=== PATIENT | male | born 1960 | race Caucasian/White ===

== ENCOUNTER → 2017-03-04 08:36 | Outpatient (CLI) | payer OTHER, SELFPAY ==
--- NOTE | 2017-03-04 08:38 | RAD_ITS ---
STUDY: X-RAY - CERVICAL SPINE REASON FOR EXAM: Male, 56 years old. Neck and bilateral shoulder pain with finger numbness. TECHNIQUE: 5 view(s) of the cervical spine were obtained. COMPARISON: None FINDINGS: Normal anterior atlantoaxial articulation. Normal odontoid process. Normal cervical lordosis. Normal vertebral bodies and endplates. Normal disc space heights. Normal visualized intervertebral neuroforamina. There is minimal uncovertebral and facet sclerosis. The soft tissue structures are unremarkable. RAD/Cerv Spine 4 or 5 Views IMPRESSION: Minimal spondylosis. No acute pathology. Electronically Signed: Margarito Johnson MD at 11:41 EST , Service support ,
--- NOTE | 2017-03-04 08:38 | RAD_ITS ---
STUDY: X-RAY - LEFT SHOULDER REASON FOR EXAM: Neck and bilateral shoulder pain. TECHNIQUE: 3 view(s) of the shoulder. COMPARISON: None. FINDINGS: Normal glenohumeral articulation. There is mild acromioclavicular arthrosis without marginal osteophytes. Normal acromion. Normal humeral head and visualized proximal humerus. The soft tissue structures are unremarkable. Normal visualized pulmonary apex. RAD/Shoulder min 2 Views IMPRESSION: Mild acromioclavicular arthrosis. Electronically Signed: Marcelo Dixon MD at 11:48 EST Tel , Service support ,
--- NOTE | 2017-03-04 08:40 | RAD_ITS ---
STUDY: X-RAY - RIGHT SHOULDER REASON FOR EXAM: Negative bilateral shoulder pain. TECHNIQUE: 3 view(s) of the shoulder. COMPARISON: None. FINDINGS: Normal glenohumeral articulation. Normal acromioclavicular joint. Normal acromion. Normal humeral head and visualized proximal humerus. The soft tissue structures are unremarkable. Normal visualized pulmonary apex. RAD/Shoulder min 2 Views IMPRESSION: Unremarkable x-ray examination of the right shoulder. Electronically Signed: Marcelo Dixon MD at 11:48 EST Tel , Service support ,
== END ==
PROVIDERS: Family Provider Internal Medicine; PCP Internal Medicine; Visit Provider Orthopaedic Surgery
DX: M54.2 Cervicalgia (principal); M25.511 Pain in right shoulder; M25.512 Pain in left shoulder
CPT/HCPCS: 72050; 73030

== ENCOUNTER → 2019-07-16 14:29 | Outpatient (CLI) | payer OTHER, SELFPAY ==
--- NOTE | 2019-07-16 14:30 | RAD_ITS ---
STUDY: X-RAY - RIGHT SHOULDER REASON FOR EXAM: Shoulder pain. TECHNIQUE: 4 view(s) of the shoulder. COMPARISON: Radiographs 03/04/2017. FINDINGS: Normal glenohumeral articulation. Normal acromioclavicular joint. Normal acromion. Normal humeral head and visualized proximal humerus. The soft tissue structures are unremarkable. Normal visualized pulmonary apex. RAD/Shoulder min 2 Views IMPRESSION: Unremarkable x-ray examination of the right shoulder. Electronically Signed: Marcelo Dixon MD at 7:35 EDT Tel , Service support ,
== END ==
PROVIDERS: PCP Internal Medicine; Referring Provider Physician Assistant; Visit Provider Physician Assistant
DX: M25.511 Pain in right shoulder (principal)
CPT/HCPCS: 73030

== ENCOUNTER → 2019-11-27 09:24 | Outpatient (CLI) | payer OTHER, SELFPAY ==
[2019-11-27 08:17] VITALS: BMI 24.0
[2019-11-27 12:15] LABS: Absolute Lymphocyte Count 1.41 X10^3/uL (0.83-4.51); Absolute Neutrophil Count 3.1 X10^3/uL (2.0-7.7); Basophil# 0.03 X10^3/uL; Basophil% 0.6 % (0-1); Eosinophil# 0.06 X10^3/uL; Eosinophils% 1.2 % (0-5); Hematocrit 43.3 % (40-54); Hemoglobin 14.1 g/dL (13.0-16.5); Lymphocyte # 1.41 X10^3/ul (4.0); Lymphocyte % 27.8 % (19-41); Mean Corp Hgb Conc 32.6 g/dL (32-36); Mean Corpuscular Hgb 30.5 pg (27.0-32.0); Mean Corpuscular Volume 93.5 fL (80-94); Mean Platelet Vol. 10.5 fl (6.2-12.0); Monocyte# 0.46 X10^3/uL; Monocyte% 9.1 % (0-10); NRBC Flagged by Analyzer 0 % (0-5); Neutrophil % 61.1 % (47-70); Platelet Count 243 K/mm3 (150-450); RBC Distribution Width SD 44.3 fl (35.1-43.9); Red Blood Count 4.63 M/mm3 (4.6-6.2); White Blood Count 5.1 K/mm3 (4.4-11.0)
[2019-11-27 12:27] LABS: ALB/GLOB Ratio 1.3 RATIO (0.9-2.4); AST(SGOT) 30 U/L (15-37); Alanine Aminotransfer ALT/SGPT 31 U/L (16-61); Albumin, Serum 3.9 g/dL (3.2-5.0); Alkaline Phosphatase 54 U/L (45-117); Anion Gap 3 (5-15); BUN 15 mg/dL (7-18); BUN/Creat Ratio 15.9 RATIO (10-20); Calcium,Total 8.8 mg/dL (8.5-10.1); Chloride 111 mmol/L (98-107); Cholesterol 193 mg/dL (200); Creatinine, Serum 0.95 mg/dL (0.70-1.30); EST Glomerular Filtration Rate 87 mL/min (>60); Est Glom Filt Rate - Afr Amer 105 mL/min (>60); Globulin 2.9 g/dL (2.2-4.2); Glucose 121 mg/dL (74-106); High Density Lipoprotein 53 mg/dL; Potassium 4.4 mmol/L (3.5-5.1); Protein, Total 6.8 g/dL (6.4-8.2); Sodium Level 143 mmol/L (136-145); Triglycerides 80 mg/dL; Very Low Density Lipoprotein 16 mg/dL (5-40)
[2019-11-27 12:59] LABS: Hemoglobin A1c 6.1 % (3.8-5.6)
== END ==
LOC: BIMLAB 09:25
PROVIDERS: PCP Internal Medicine; Referring Provider Internal Medicine; Visit Provider Internal Medicine
DX: Z86.39 Personal history of other endocrine, nutritional and metabolic disease (principal)
CPT/HCPCS: 36415; 80053; 80061; 83036; 85025

== ENCOUNTER → 2020-01-17 10:40 | Outpatient (CLI) | payer OTHER, SELFPAY ==
[2019-11-27 08:17] VITALS: BMI 24.0
--- NOTE | 2020-01-17 10:42 | MRI_ITS ---
STUDY: MRI RIGHT SHOULDER REASON FOR EXAM: Right shoulder pain for 3 years, no specific injury. TECHNIQUE: Standardized fat and water weighted pulse sequences were obtained in all 3 orthogonal planes. COMPARISON: Radiographs 07/16/2019. FINDINGS: There is supraspinatus tendinosis and a small intermediate grade partial-thickness tear of the bursal surface of the distal anterior supraspinatus tendon at the greater tuberosity insertion (T2 coronal image 16; T2 sagittal image 7) measuring 0.2 cm in length. Normal infraspinatus tendon. Normal subscapularis tendon. Normal teres minor tendon. Normal supraspinatus muscle. Normal infraspinatus muscle. Normal subscapularis muscle. Normal teres minor muscle. Normal glenohumeral articulation. Normal humeral head and visualized proximal humerus. There is a possible SLAP lesion (T2 coronal images 11-14). There is a small volume of fluid in the bicipital tendon sheath (proton-density axial images 16-20) suggestive of mild bicipital tenosynovitis. Normal capsulo- ligamentous complex. There is acromioclavicular arthrosis with hypertrophic changes effacing the subacromial fat (T2 sagittal image 13). There is a Type II morphology (curved), with a neutral orientation. There is no subacromial-subdeltoid bursal fluid. Normal visualized coracohumeral and coracoacromial ligaments. Normal deltoid muscle. Normal trapezius muscle. MRI/Upper Ext Joint Only(Routine) IMPRESSION: Small partial-thickness tear and tendinosis of the supraspinatus tendon. Possible SLAP lesion. Mild bicipital tenosynovitis. Acromioclavicular arthrosis. Electronically Signed: Marcelo Dixon MD at 13:18 EST Tel , Service support ,
--- NOTE | 2020-01-17 10:54 | RAD_ITS ---
STUDY: X-RAY - ORBITS REASON FOR EXAM: Male, 59 years old. HX OF METAL IN BOTH EYES, PRE MRI CLEARANCE TECHNIQUE: 2 view(s) of the orbits were obtained. COMPARISON: None. FINDINGS: Normal bilateral orbits without a metallic orbital foreign body. Normal visualized facial bones. Normal paranasal sinuses. The soft tissue structures are unremarkable. RAD/Orbits for Foreign Body IMPRESSION: No demonstrated metallic orbital foreign body. The patient is cleared for an MRI examination. Electronically Signed: David Mendenhall, at 11:10 EST , Service support ,
== END ==
PROVIDERS: PCP Internal Medicine; Referring Provider Physician Assistant; Visit Provider Physician Assistant
DX: S49.91XA Unspecified injury of right shoulder and upper arm, initial encounter (principal)
CPT/HCPCS: 70030; 73221

== ENCOUNTER 2020-02-13 06:01 | Day surgery (SDC) | payer OTHER, SELFPAY ==
[2019-11-27 08:17] VITALS: BMI 24.0
--- NOTE | 2020-02-07 10:50 | EKG12_ITS ---
Test Reason : PREOP Blood Pressure : / mmHG Vent. Rate : 053 BPM Atrial Rate : 053 BPM P-R Int : 194 ms QRS Dur : 076 ms QT Int : 394 ms P-R-T Axes : 048 004 035 degrees QTc Int : 369 ms Sinus bradycardia Otherwise normal ECG Confirmed by CHLOE LYNNE, JOSE ([id number]), editor in chief JOSE BLANCO ([id number]) on 02/11/2020 9:34:32 AM Referred By: Zamzam Vasques Confirmed By:RADHA CORONA MD
[2020-02-13 06:49] VITALS: BP 121/78; PULSE 61; RESP 16; TEMP 36.7; O2SAT 96; BMI 24.2
[2020-02-13] MEDS: Lactated Ringers 1,000 ML 100 ML IV ×2 (06:56→08:45)
--- NOTE | 2020-02-13 07:23 | PCM.DC.ORTHO ---
Discharge Diet: No Restrictions - sling at all times unless doing pendulums, perform pendulums 3 times daily, remove dressing pod4 and apply bandaids to incision sites, call with concerns, follow up in 2 weeks, Discharge Activity: May Not Drive May shower in (days): 1 Ice area for (Minutes): 20 - Every hour while awake. Weight Bearing Status: Weight bearing as tolerated Keep extremity elevated above heart level: Operative Extremity Call your doctor if your incision/area has: Continuous Slow Oozing, Sudden Increased Bleeding, Increased Pain/ Swelling, Increased Redness, Foul Smelling Discharge Call your doctor if you observe: Fever of 101 or Higher, Coldness, Increased Pain, Numbness or Tingling, Change in Color, Calf discomfort Allergies/Adverse Reactions: Allergies No Known Allergies Allergy (Verified 02/13/20 06:28) Medications to take at Discharge multivitamin,vk-[id number] 1 tab PO DAILY 11/27/19 ascorbic acid (vitamin C) 500 mg capsule 500 mg PO 12/31/19 omega-3 fatty acids 1,000 mg capsule 1,000 mg PO DAILY 12/31/19 turmeric 400 mg capsule 800 mg PO 12/31/19 cholecalciferol (vitamin D3) 50 mcg (2,000 unit) capsule 50 mcg PO DAILY 01/22/20 red yeast rice 600 mg capsule 600 mg PO DAILY 01/22/20 vitamin B complex 1 tab PO DAILY 01/22/20 Oxycodone HCl/Acetaminophen [Percocet 5/325] 1 - 2 tab PO Q6H PRN PRN 5 Days #28 tab 02/13/20 Zolpidem Tartrate [Ambien (Generic)] 5 mg PO QHS PRN PRN #14 tab 02/13/20 The following prescriptions were given: Zolpidem Tartrate [Ambien (Generic)] 5 mg PO QHS PRN PRN #14 tab PRN Reason: Insomnia Transmission Status: Received by [id number] Oxycodone HCl/Acetaminophen [Percocet 5/325] 1 - 2 tab PO Q6H PRN PRN 5 Days #28 tab PRN Reason: Pain Transmission Status: Received by [id number] Orders to be completed after discharge: 12 Lead EKG [[facility]] Time Frame: 02/07/20, Location: None Selected Primary Care Physician: Lali Rodas MD [Primary Care Provider] - Test Results: Test results from this visit will be discussed in further detail at your follow-up appointment, if applicable. Please Follow Up With: Zamzam Vasques, - [phone]
--- NOTE | 2020-02-13 07:24 | OP.PCM_ITS ---
Report of Operation Date of Procedure: 02/13/20 Pre-Operative Diagnosis: left shoulder rotator cuff tear, subacromial imp ingement, rotator cuff tear, biceps tendinosis/labral insertion tear Post-Operative Diagnosis: same Surgery/Procedure Performed:: sals, rc repair, sad/acromioplasty, open subpec biceps tenodesis solutions market consultant: Cole Gaines Type of Anesthesia:: General/Regional Anesthesiologist: Curtis Moralez Replaced: 1200cc lr Description of Procedure: Preop note Patient is a 59-year-old male with continued right shoulder pain and pain overhead. Patient pain is biceps insertional pain worse with supination also overhead pain and acromial impingement syndrome. Risk of an MRI patient after failure to fail conservative treatment MRI confirms rotator cuff tear most likely subscap partial leading edge supraspinatus biceps tendinosis SLAP tear and impingement syndrome. Risk benefits and alternatives are discussed with patient. Risk include but not limited to blood loss, blood clot, infection, neurovascular damage, failure procedure, loss of life and loss of limb. Patient is aware like proceed with right shoulder arthroscopy repair as indicated. Nilesh Petersen Operative note Patient seen and examined preop preoperative holding area. Right shoulder was marked. Patient brought the operating placed supine on the operating table. Sign, anesthesia, antibiotics were administered. Right arm was prepped and draped in usual sterile technique after beachchair positioning was initiated. Maintained. Please note the intermediate through beachchair position we did recheck his blood pressure which was stable throughout. All bony promises well-padded SCDs placed on his cot on his bilateral lower extremity. Then prepped and draped the right upper extremity in usual standard technique. I marked out our bony landmarks and our portal placement incision. Timeout was performed. We then insufflated the glenohumeral joint for the posterior aspect and had good return. We then used a 11 blade to create a posterior portal. Began our diagnostic arthroscopy. Had a central herniation pit in the glenoid the humeral surface chondral surface was thin but intact. The subscap had a leading edge tear. We then created anterior portal under direct visualization. There were no loose bodies in the inferior recess we then were able to probe the biceps tendon the biceps tendon was quite thickened at its insertion and completely pulled off at its labral anchor anchor. We then visualized the rotator cuff from the undersurface on the articular side which has some fraying. We then gently debrided the rotator cuff with a shaver at the leading edge and then marked the site of the leading edge tear with a spinal needle. We then placed 2 fast fiber links into the subscap and then prepared the bed for the swivel lock we then placed a swivel lock anchor and had good tension of the subscap repair. We truncated the biceps and then we gently debrided back to its insertion on the labrum and debrided and released piece of cartilage around the joint. The moved to the subacromial space. Created a lateral portal under direct visualization. There is quite thickened bursa throughout this was removed with a combination of a shaver and a burner. L sided type II acromion was gently coplane as well. We then visualized the spot of our spinal needle and was not a full-thickness tear in the tendon on the bursal tendon was intact and was not thinned at the site was put in is pretty far anterior. We then moved her open biceps subpec tenodesis. We reprepped the area where the allotted 3 minutes we marked our incision just distal to the pec insertion on the medial portal portal. About 2 cm incision we then directed down tenotomies of the biceps for the biceps at the incision and marked out the length of the tendon based on our planned 2 days a spot on with the button we truncated the biceps and sent to pathology for further evaluation. We then whipstitched the end of the biceps with a fiber loop we drilled unicortical he placed our button through the hole please note that we had placed the ends of the whipstitch biceps tendon through the anchors through the end of the pec button prior to insertion. We then clipped the biceps the PEG button and then oversewed the suture to the periosteum during to protect all neurovascular structures at all times. We irrigated the incision with copious nonsterile saline. Incision was closed with three oh.Vicryl in subcuticular layer and 4-0 Monocryl and the portals were closed with interrupted 4-0 nylon stitches. Sterile dressings were applied. Patient was placed in a sling. Patient taught procedure well no complications transferred recovery room in stable condition. Please note the patient received a preop regional block. Postoperative note Discussed with We will get pictures in 2 weeks Call with increased pain numbness tingling further issues arise Prescription sent to [facility] This note was generated with [employer] dictation software. It may contain incorrect words, spelling, and punctuation that were not noted in checking the note before signing.
--- NOTE | 2020-02-13 07:30 | TESH_PTH ---
PATIENT: EMANUEL IGNACIO LOC: [facility] U#:[id number] AGE/SX: 59/M ROOM: RE02/13/[address]: Dr. Zamzam Vasques DO : 1960 BED: DIS: 02/13/2020 SPEC #: [id number] RECD: 02/13/20 10:23 STATUS: MARY RESylvester #: [id number] NEDRA: 02/13/20 07:[address]: Zamzam Vasques DEPT: SURGICAL PATHOLOGY RECD BY: Estefani eLwis ENTERED: 02/13/20 10:57 SP TYPE: TENDON OTHR DR: Dr. Lali Rodas MD Tissues: Tendon and tendon sheath, NOS Procedures: Surgery Specimen Level III HEADER OPERATION: Right shoulder arthroscopy, rotator cuff repair PRE-OP DIAGNOSIS: Right rotator cuff tear; labral tear of long head of right biceps tendon TISSUE SUBMITTED: Right bicep tendon MICROSCOPIC DIAGNOSIS Right biceps tendon, biopsy: Tendinous tissue with degenerative and reparative change. AM:connor 02/14/2020 MICROSCOPIC DESCRIPTION Slides are reviewed. GROSS DESCRIPTION Received in fixative is one container labeled with the patient's name and designated right bicep tendon. The specimen consists of two pieces of tendinous tissue measuring 3.5 x 1.5 x 0.5 cm and 1.5 x 0.5 x 0.2 cm. Pre Coder sections are submitted in one cassette. / SJ:connor 02/13/2020 TC:5 CPT: 55341
--- NOTE | 2020-02-13 07:31 | HP_ITS ---
I have re-examined the patient. There are no clinical changes since date of exam. Intake Intake Visit Reasons: RIGHT SHOULDER Accompanied by: Spouse Is patient in pain?: Yes Pain scale (1-10): 3 Allergies No Known Allergies Allergy (Verified 01/22/20 09:04) Medications multivitamin,sk-ejvw-yctwrzae 1 tab PO DAILY 11/27/19 [History Confirmed 01/22/20] ascorbic acid (vitamin C) 500 mg capsule mg PO 12/31/19 [History Confirmed 01/22/20] omega-3 fatty acids 1,000 mg capsule 1,000 mg PO DAILY 12/31/19 [History Confirmed 01/22/20] turmeric 400 mg capsule mg PO 12/31/19 [History Confirmed 01/22/20] antiarthritic combination no.2 900 mg tablet 900 mg PO DAILY tab 01/22/20 [History Confirmed 01/22/20] cholecalciferol (vitamin D3) 50 mcg (2,000 unit) capsule 50 mcg PO DAILY 01/22/20 [History Confirmed 01/22/20] red yeast rice 600 mg capsule 600 mg PO DAILY 01/22/20 [History Confirmed 01/22/20] vitamin B complex 1 tab PO DAILY 01/22/20 [History Confirmed 01/22/20] PFSH Medical History (Updated 11/27/19 @ 08:14 by Pily Astudillo) History of chest pain (Acute) Family History (Updated 11/27/19 @ 08:15 by Pily Astudillo) Father Hypertension Colon cancer Grandfather Hypertension Diabetes Grandmother Heart disease Other CVA (cerebral vascular accident) High cholesterol angina Social History (Updated 01/22/20 @ 11:[address] Zamzam Vasques DO) Smoking Status: Never smoker alcohol intake: current alcohol intake frequency: holidays/special occasions only substance use type: does not use what type of physical activity do you participate in: walking, running frequency: 3-4 times per week HPI RIGHT SHOULDER: Surgical H&P: Yes Details: Parts of this documentation were recorded by a scribe, this documentation accurately reflects the service provided and the decisions made by me, Dr. Zamzam Vasques DO 01/22/20 0900. EMANUEL IGNACIO is a 59 year old M here today for his MRI review. Patient had an MRI of his right shoulder on: 01/17/2020. Pain is rated: 3/10 from the pain scale. Pain is constant, worsens with activity. Pain is located on top of his right shoulder, posterior, and deltoid pain. Denies numbness, stiffness and tingling. Patient has been taking Aleve prn for pain relief. ROS Musc Reports system reviewed and no additional complaints, except as docu, Reports joint pain, Denies joint swelling, Denies numbness, Denies stiffness, Denies tingling Skin/Breast Denies system reviewed and no additional complaints, except as docu, Denies dry skin, Denies redness, Denies lesions, Denies new lesions, Denies non-healing lesions, Denies itching, Denies rash, Denies skin ulcer, Denies sores, Denies wounds Neuro No numbness, No tingling Ortho Exam Right Shoulder Testing: Positive Hawkin's, Neer's, Speed's, TTP Biceps, Drop Arm, AROM-Forward Elevation 0-180, AROM-External Rotation at 90 0-60, AROM-External Rotation at side 0-60, PROM-External Rotation at side 0-60, PROM-External Rotation at 90 0- 60, PROM-Forward Elevation 0-180 and belly press normal SHOULDER: pain withextremees ofmotion and pos drop arm, full PROM without pain Assessment & Plan Problems 1. Tear of right rotator cuff, unspecified tear extent, unspecified whether traumatic M75.101 2. Labral tear of long head of right biceps tendon S46.111A Plan Discussed MRI results with the patient and spouse. Educated he tore his rotator cuff, half to one cm tear. Patient also has developed bursitis, which would explain his posterior shoulder pain. Advised treatments options are: injections, surgical intervention by arthroscopy. After surgery, if repairing the biceps, patient would be in a sling for six weeks. will let us know day of surgery if he wants tenotomy vs tenodesis. If repairing rotator cuff, patient would be in a sling as well. Patient and spouse would like to proceed with surgery. Reviewed the pre-operative plans with the patient. Risks and benefits of the procedure were fully explained, including but not limited to infection, neurovascular injury, continued pain, arthritis, stiffness, need for further surgery, re-injury, DVT, PE, general risks of anesthesia, and loss of limb or life. The patient understands all the risks and does wish to proceed with written consent. All questions answered. Patient in agreement of plan. We discussed the current risk associated COVID-19. While it is understood that there is a community spread of COVID 19 the risk of giovanni COVID-19 while at [facility] is very low, however, the risk cannot be completely mitigated because of the community spread of the disease. We discussed in detail the risk of exposure to and or potential harm posed by the COVID-19 virus with having a surgery/procedure at this time versus the risk of delaying the surgery/procedure. Is not possible to know either the risk of delaying the surgery procedure or chance of getting an infection with perfect accuracy, but a joint decision was made to proceed at this time with a schedule surgery/procedure as indicated on the consent form. Patient was notified that we will need to comply with any screening or testing [facility] wishes to perform or that surgery may be delayed for any positive results. Follow up post-op or sooner if pain, swelling, numbness or associated symptoms, or concerns develop. Plan Detail Follow Up post op Coding Level of Care Code Off vis,est,level 4 Diagnoses Tear of right rotator cuff, unspecified tear extent, unspecified whether traumatic M75.101 ??Rotator cuff tear extent: unspecified tear extent ??Rotator cuff tear trauma status: unspecified whether traumatic Labral tear of long head of right biceps tendon S46.111A
[2020-02-13] MEDS: Cefazolin 2 GM in 0.9% Normal Saline 100 ML IV (07:41)
[2020-02-13] MEDS: Epinephrine (1 mg/ml) 1 MG/ML VIAL (08:34)
[2020-02-13] MEDS: Mupirocin Ointment 22gm Tube 1 APPLIC (09:23)
[2020-02-13 09:41] VITALS: BP 114/72; BP 121/78; PULSE 74; RESP 16; TEMP 36.3; O2SAT 94
[2020-02-13 09:45] VITALS: BP 113/67; BP 121/78; PULSE 74; RESP 16; O2SAT 99
[2020-02-13] MEDS: Ketorolac 15 MG/ML Vial IV (09:53)
[2020-02-13 10:00] VITALS: BP 112/71; BP 121/78; PULSE 66; RESP 16; O2SAT 97
[2020-02-13 10:17] VITALS: BP 107/73; BP 121/78; PULSE 64; RESP 16; TEMP 36; O2SAT 96
[2020-02-13 11:10] VITALS: BP 109/74; BP 121/78; PULSE 66; RESP 16; TEMP 35.8; O2SAT 94
== END 2020-02-13 11:10 | disposition home or self-care (01) ==
LOC: SDC 06:01 → AC 06:02
PROVIDERS: PCP Internal Medicine; Referring Provider Orthopaedic Surgery; Visit Provider Orthopaedic Surgery
PROC: (CPT 29827; principal; 2020-02-13 07:10)
DX: M75.101 Unspecified rotator cuff tear or rupture of right shoulder, not specified as traumatic (principal); Z20.828 Contact with and (suspected) exposure to other viral communicable diseases; S46.111A Strain of muscle, fascia and tendon of long head of biceps, right arm, initial encounter; X58.XXXA Exposure to other specified factors, initial encounter; Y93.9 Activity, unspecified; Y92.9 Unspecified place or not applicable; Y99.9 Unspecified external cause status
CPT/HCPCS: 23430; 29826; 29827; 64415; 87426; 88304; 93005; C9803; J7120; J2405

== ENCOUNTER → 2020-12-09 12:09 | Outpatient (CLI) | payer OTHER, SELFPAY ==
[2020-12-09 15:45] LABS: Absolute Lymphocyte Count 1.76 X10^3/uL (0.83-4.51); Absolute Neutrophil Count 3.3 X10^3/uL (2.0-7.7); Basophil# 0.04 X10^3/uL; Basophil% 0.7 % (0-1); Eosinophil# 0.04 X10^3/uL; Eosinophils% 0.7 % (0-5); Hematocrit 43.9 % (40-54); Hemoglobin 14.6 g/dL (13.0-16.5); Lymphocyte # 1.76 X10^3/ul (0.83-4.51); Lymphocyte % 31.6 % (19-41); Mean Corp Hgb Conc 33.3 g/dL (32-36); Mean Corpuscular Hgb 30.7 pg (27.0-32.0); Mean Corpuscular Volume 92.2 fL (80-94); Mean Platelet Vol. 10.9 fl (6.2-12.0); Monocyte# 0.47 X10^3/uL; Monocyte% 8.4 % (0-10); NRBC Flagged by Analyzer 0 % (0-5); Neutrophil # 3.25 X10^3/uL (2.7-7.7); Neutrophil % 58.4 % (47-70); Platelet Count 264 K/mm3 (150-450); RBC Distribution Width CV 13.8 % (11.6-14.6); RBC Distribution Width SD 47.5 fl (35.1-43.9); Red Blood Count 4.76 M/mm3 (4.6-6.2); White Blood Count 5.6 K/mm3 (4.4-11.0)
[2020-12-09 15:51] LABS: Hemoglobin A1c 6.1 % (3.8-5.6)
[2020-12-09 15:54] LABS: ALB/GLOB Ratio 1.4 RATIO (0.9-2.4); AST(SGOT) 25 U/L (15-37); Alanine Aminotransfer ALT/SGPT 26 U/L (16-61); Albumin, Serum 4.4 g/dL (3.2-5.0); Alkaline Phosphatase 56 U/L (45-117); Anion Gap 4 (5-15); BUN 17 mg/dL (7-18); BUN/Creat Ratio 16.5 RATIO (10-20); Chloride 103 mmol/L (98-107); Cholesterol 203 mg/dL (200); Creatinine, Serum 1.03 mg/dL (0.70-1.30); EST Glomerular Filtration Rate 79 mL/min (>60); Est Glom Filt Rate - Afr Amer 95 mL/min (>60); Globulin 3.2 g/dL (2.2-4.2); Glucose 115 mg/dL (74-106); High Density Lipoprotein 50 mg/dL; Potassium 4.6 mmol/L (3.5-5.1); Protein, Total 7.6 g/dL (6.4-8.2); Sodium Level 138 mmol/L (136-145); Triglycerides 90 mg/dL; Very Low Density Lipoprotein 18 mg/dL (5-40)
== END ==
PROVIDERS: PCP Internal Medicine; Referring Provider Internal Medicine; Visit Provider Internal Medicine
DX: E78.5 Hyperlipidemia, unspecified (principal); R73.9 Hyperglycemia, unspecified; E55.9 Vitamin D deficiency, unspecified; Z12.5 Encounter for screening for malignant neoplasm of prostate
CPT/HCPCS: 36415; 80053; 80061; 82306; 83036; 84153; 85025; G0103

== ENCOUNTER 2021-01-09 06:22 | Day surgery (SDC) | payer OTHER, SELFPAY ==
[2021-01-09] VITALS (16 sets, daily range): BP systolic 88–137; BP diastolic 64–94; PULSE 46–73; RESP 16; TEMP 36.1–36.3; O2SAT 93–100; BMI 24.5
--- NOTE | 2021-01-09 06:32 | PCM.HP.STD ---
HPI - General HPI Narrative EMANUEL IGNACIO, is a 60 M who presents who presents today for a screening colonoscopy. He has a family history of a father who had colon cancer. On January 30, 2016 I performed a colonoscopy for him. September 2020 he did have mild symptoms of Covid-19. Subsequent to that however he has had the [employer] COVID-19 vaccination. He denies any hospitalizations over the past year. He currently is feeling well. No bright red blood per rectum or melena no abdominal pain. No history of DVT. Is not on any anticoagulant. [facility] Medical History (Updated 01/09/21 @ 06:[address] Darion Nunez MD) Alcohol use History of ulceration Non-smoker Wears glasses Home Medications multivitamin,kg-eysh-sppssbbw 1 tab PO DAILY 11/27/19 [History Last Taken Unknown] ascorbic acid (vitamin C) 500 mg capsule 500 mg PO DAILY 12/31/19 [History Last Taken Unknown] turmeric 400 mg capsule 400 mg PO DAILY 12/31/19 [History Last Taken Unknown] cholecalciferol (vitamin D3) 50 mcg (2,000 unit) capsule 50 mcg PO DAILY 01/22/20 [History Last Taken Unknown] red yeast rice 600 mg capsule 600 mg PO DAILY 01/22/20 [History Last Taken Unknown] vitamin B complex 1 tab PO DAILY 01/22/20 [History Last Taken Unknown] Vernal essentials 1 cap PO DAILY 12/09/20 [History Last Taken Unknown] Allergy/AdvReac Type Severity Reaction Status Date / Time No Known Allergies Allergy Verified 01/06/21 15:28 Family History (Updated 11/27/19 @ 08:15 by Pily Astudillo) Father Hypertension Colon cancer Grandfather Hypertension Diabetes Grandmother Heart disease Other CVA (cerebral vascular accident) High cholesterol angina Surgical History (Updated 01/06/21 @ 15:35 by Tonya Villafuerte) Hx of hernia repair Hx of rotator cuff surgery Social History (Updated 05/08/20 @ 11:[address] Zamzam Vasques DO) Smoking Status: Never smoker alcohol intake: current alcohol intake frequency: holidays/special occasions only substance use type: does not use what type of physical activity do you participate in: walking and running frequency: 3-4 times per week ROS Constitutional Constitutional: Reports systems reviewed and no addt'l complaints, except as documented Cardiovascular Cardiovascular: Denies chest pain Respiratory/Chest Respiratory/Chest: Denies shortness of breath at rest Gastrointestinal Gastrointestinal: Denies abdominal pain, change in bowel habits, hematochezia or melena Physical Exam Const alert, oriented x3 and no apparent distress General Appearance: cooperative and comfortable Eyes General Eye: normal appearance of both eyes Neck General: normal visual inspection Chest inspection of chest normal Resp Effort and Inspection: able to speak in complete sentences and symmetric chest movement Auscultation: clear to auscultation bilaterally Cardio regular rate and regular rhythm GI soft to palpation, non-tender and non-distended Extremity no calf tenderness Neuro oriented x3 Psych thought process normal Assessment & Plan Assessment/Plan (1) Screening for intestinal cancer: PLAN: The patient presents via open access today. We plan to proceed with a screening colonoscopy with possible biopsy or polypectomy as indicated. He has had an opportunity to ask and have questions answered. We will proceed as noted. Darion Nunez M.D., F.A.C.S.
[2021-01-09] MEDS: Lactated Ringers 1,000 ML 15 ML IV (06:59)
[2021-01-09] MEDS: Midazolam 5 MG/ML Syringe (07:57)
--- NOTE | 2021-01-09 08:03 | OP.COLON_ITS ---
Patient Name: Gary Medina Procedure Date: 01/09/2021 7:33 AM Date of : 1960 Age: 60 Procedure: Colonoscopy Indications: Screening in patient at increased risk: Family history of 1st-degree relative with colorectal cancer Providers: Darion Nunez MD Medicines: Midazolam 4.5 mg IV, Meperidine 100 mg IV Patient Profile: Last Colonoscopy: 2015. Complications: No immediate complications. Procedure: Pre-Anesthesia Assessment: - Prior to the procedure, a History and Physical was performed, and patient medications and allergies were reviewed. The patient's tolerance of previous anesthesia was also reviewed. The risks and benefits of the procedure and the sedation options and risks were discussed with the patient. All questions were answered, and informed consent was obtained. Prior Anticoagulants: The patient has taken no previous anticoagulant or antiplatelet agents. ASA Grade Assessment: II - A patient with mild systemic disease. After reviewing the risks and benefits, the patient was deemed in satisfactory condition to undergo the procedure. After I obtained informed consent, the scope was passed under direct vision. Throughout the procedure, the patient's blood pressure, pulse, and oxygen saturations were monitored continuously. The Colonoscope was introduced through the anus and advanced to the cecum, identified by appendiceal orifice and ileocecal valve. The colonoscopy was performed without difficulty. The patient tolerated the procedure well. The quality of the bowel preparation was good. Moderate Sedation: Moderate (conscious) sedation was personally administered by the endoscopist. The following parameters were monitored: oxygen saturation, heart rate, blood pressure, and response to care. Total physician intraservice time was 15 minutes. Scope In: 7:44:42 AM Scope Withdrawal Time 0 hours 7 minutes 38 seconds Scope Out: 7:57:24 AM Total Procedure Duration Time 0 hours 12 minutes 42 seconds Findings: The digital rectal exam findings include non-thrombosed internal hemorrhoids, internal hemorrhoids that prolapse with straining, but spontaneously regress to the resting position (Grade II) and enlarged prostate. The colon (entire examined portion) appeared normal. Impression: - Non-thrombosed internal hemorrhoids, internal hemorrhoids that prolapse with straining, but spontaneously regress to the resting position (Grade II) and enlarged prostate found on digital rectal exam. - The entire examined colon is normal. - No specimens collected. Recommendation: - Discharge patient to home. - Resume previous diet. - Continue present medications. - Repeat colonoscopy in 5 years for surveillance. Procedure Code(s): --- Professional --- 07727, Colonoscopy, flexible; diagnostic, including collection of specimen(s) by brushing or washing, when performed (separate procedure) 18773, 60, Moderate sedation services provided by the same physician or other qualified health daycare teacher performing the diagnostic or therapeutic service that the sedation supports, requiring the presence of an independent trained observer to assist in the monitoring of the patient's level of consciousness and physiological status; initial 15 minutes of intraservice time, patient age 5 years or older Diagnosis Code(s): --- Professional --- Z80.0, Family history of malignant neoplasm of digestive organs K64.1, Second degree hemorrhoids N40.0, Benign prostatic hyperplasia without lower urinary tract symptoms CPT copyright 2017 [employer]. All rights reserved. The codes documented in this report are preliminary and upon head worker review may be revised to meet current compliance requirements. Darion Nunez MD 01/09/2021 8:02:51 AM This report has been signed electronically. Number of Addenda: 0 Note Initiated On: 01/09/2021 7:33 AM
--- NOTE | 2021-01-09 08:04 | OP.CCLET_ITS ---
01/09/2021 Lali Rodas [facility] [address] [place] [address] Re : Colonoscopy procedure for Adam Dear Dr. Rodas This procedure was performed on Saturday, January 09, 2021. My impressions and recommendations are as follows: Impressions : - Non-thrombosed internal hemorrhoids, internal hemorrhoids that prolapse with straining, but spontaneously regress to the resting position (Grade II) and enlarged prostate found on digital rectal exam. - The entire examined colon is normal. - No specimens collected. Recommendations : - Discharge patient to home. - Resume previous diet. - Continue present medications. - Repeat colonoscopy in 5 years for surveillance. My findings are described in the full procedure note, which is enclosed. If I can be of further assistance, please feel free to contact me at Doctor phone number(s): Work: . Sincerely, Darion Nunez MD 01/09/2021 8:02:51 AM This report has been signed electronically.
== END 2021-01-09 09:08 ==
LOC: EN 06:22 → AC 06:23
PROVIDERS: PCP Internal Medicine; Referring Provider Internal Medicine; Visit Provider Surgery
PROC: 0DJD8ZZ Inspection of Lower Intestinal Tract, Via Natural or Artificial Opening Endoscopic (ICD-10-PCS; CPT 45378; principal; 2021-01-09 07:25)
DX: Z12.11 Encounter for screening for malignant neoplasm of colon (principal); K64.1 Second degree hemorrhoids; N40.0 Benign prostatic hyperplasia without lower urinary tract symptoms; Z80.0 Family history of malignant neoplasm of digestive organs; Z79.899 Other long term (current) drug therapy
CPT/HCPCS: 45378; 99152; 99153; J7120

== ENCOUNTER → 2022-09-20 | Outpatient (CLI) | payer OTHER, SELFPAY ==
[2022-09-20 11:55] LABS: Absolute Lymphocyte Count 0.95 X10^3/uL (0.83-4.51); Absolute Neutrophil Count 7.9 X10^3/uL (2.0-7.7); Basophil# 0.03 X10^3/uL; Basophil% 0.3 % (0-1); Eosinophil# 0.02 X10^3/uL; Eosinophils% 0.2 % (0-5); Hematocrit 43.1 % (40-54); Hemoglobin 14.1 g/dL (13.0-16.5); Lymphocyte # 0.95 X10^3/ul (0.83-4.51); Lymphocyte % 10.1 % (19-41); Mean Corp Hgb Conc 32.7 g/dL (32-36); Mean Corpuscular Hgb 31.2 pg (27.0-32.0); Mean Corpuscular Volume 95.4 fL (80-94); Mean Platelet Vol. 9.5 fl (6.2-12.0); Monocyte# 0.48 X10^3/uL; Monocyte% 5.1 % (0-10); NRBC Flagged by Analyzer 0 % (0-5); Neutrophil # 7.87 X10^3/uL (2.7-7.7); Platelet Count 254 K/mm3 (150-450); RBC Distribution Width CV 14.6 % (11.6-14.6); RBC Distribution Width SD 51.2 fl (35.1-43.9); Red Blood Count 4.52 M/mm3 (4.6-6.2); White Blood Count 9.4 K/mm3 (4.4-11.0)
[2022-09-20 12:55] LABS: Vitamin D,25 Hydroxy 48.8 ng/mL
[2022-09-20 13:09] LABS: Hemoglobin A1c 6.5 % (3.8-5.6)
[2022-09-20 13:10] LABS: ALB/GLOB Ratio 1.2 RATIO (0.9-2.4); AST(SGOT) 30 U/L (15-37); Alanine Aminotransfer ALT/SGPT 32 U/L (16-61); Albumin, Serum 3.5 g/dL (3.2-5.0); Alkaline Phosphatase 52 U/L (45-117); Anion Gap 6 (5-15); BUN 15 mg/dL (7-18); BUN/Creat Ratio 18.5 RATIO (10-20); Calcium,Total 8.5 mg/dL (8.5-10.1); Chloride 105 mmol/L (98-107); Cholesterol 252 mg/dL (200); Creatinine, Serum 0.81 mg/dL (0.70-1.30); EST Glomerular Filtration Rate 103 mL/min (>60); Est Glom Filt Rate - Afr Amer 125 mL/min (>60); Glucose 137 mg/dL (74-106); High Density Lipoprotein 64 mg/dL; PSA,Total - Annual Screen 2.35 ng/mL (0.00-4.00); Potassium 4.2 mmol/L (3.5-5.1); Protein, Total 6.5 g/dL (6.4-8.2); Sodium Level 138 mmol/L (136-145); Thyroid Stim Hormone (TSH) 1.49 uIU/mL (0.358-3.74); Triglycerides 137 mg/dL; Very Low Density Lipoprotein 27 mg/dL (5-40)
== END | disposition home or self-care (01) ==
LOC: LAB 11:25
PROVIDERS: PCP Internal Medicine; Referring Provider Internal Medicine; Visit Provider Internal Medicine
DX: E78.5 Hyperlipidemia, unspecified (principal); R73.9 Hyperglycemia, unspecified; M54.50 Low back pain, unspecified; Z12.5 Encounter for screening for malignant neoplasm of prostate; Z13.220 Encounter for screening for lipoid disorders
CPT/HCPCS: 36415; 80053; 80061; 82306; 83036; 84153; 84443; 85025; G0103

== ENCOUNTER → 2023-12-26 | Outpatient (CLI) | payer OTHER, SELFPAY ==
[2023-12-26 12:48] LABS: Absolute Lymphocyte Count 1.48 X10^3/uL (0.83-4.51); Absolute Neutrophil Count 2.8 X10^3/uL (2.0-7.7); Basophil# 0.03 X10^3/uL; Basophil% 0.6 % (0-1); Eosinophil# 0.05 X10^3/uL; Hemoglobin 14.3 g/dL (13.0-16.5); Lymphocyte # 1.48 X10^3/ul (0.83-4.51); Lymphocyte % 30.9 % (19-41); Mean Corp Hgb Conc 32.5 g/dL (32-36); Mean Corpuscular Hgb 30.2 pg (27.0-32.0); Mean Corpuscular Volume 92.8 fL (80-94); Monocyte# 0.38 X10^3/uL; Monocyte% 7.9 % (0-10); NRBC Flagged by Analyzer 0 % (0-5); Neutrophil # 2.84 X10^3/uL (2.7-7.7); Neutrophil % 59.4 % (47-70); Platelet Count 259 K/mm3 (150-450); RBC Distribution Width CV 13.4 % (11.6-14.6); RBC Distribution Width SD 45.8 fl (35.1-43.9); Red Blood Count 4.74 M/mm3 (4.6-6.2); White Blood Count 4.8 K/mm3 (4.4-11.0)
[2023-12-26 12:51] LABS: Vitamin D,25 Hydroxy 74.3 ng/mL
[2023-12-26 13:11] LABS: ALB/GLOB Ratio 1.3 RATIO (0.9-2.4); AST(SGOT) 30 U/L (15-37); Alanine Aminotransfer ALT/SGPT 30 U/L (16-61); Albumin, Serum 3.9 g/dL (3.2-5.0); Alkaline Phosphatase 56 U/L (45-117); Anion Gap 5 (5-15); BUN 12 mg/dL (7-18); BUN/Creat Ratio 12.1 RATIO (10-20); Chloride 107 mmol/L (98-107); Cholesterol 196 mg/dL (200); Creatinine, Serum 0.99 mg/dL (0.70-1.30); EST Glomerular Filtration Rate 81 mL/min (>60); Est Glom Filt Rate - Afr Amer 98 mL/min (>60); Globulin 2.9 g/dL (2.2-4.2); Glucose 137 mg/dL (74-106); High Density Lipoprotein 44 mg/dL; PSA,Total - Annual Screen 2.02 ng/mL (0.00-4.00); Potassium 3.8 mmol/L (3.5-5.1); Protein, Total 6.8 g/dL (6.4-8.2); Sodium Level 140 mmol/L (136-145); Triglycerides 164 mg/dL; Very Low Density Lipoprotein 33 mg/dL (5-40)
[2023-12-26 13:18] LABS: Hemoglobin A1c 6.8 % (3.8-5.6)
== END | disposition home or self-care (01) ==
LOC: BIMLAB 09:34
PROVIDERS: PCP Internal Medicine; Visit Provider Internal Medicine
DX: E78.5 Hyperlipidemia, unspecified (principal); R73.9 Hyperglycemia, unspecified; E55.9 Vitamin D deficiency, unspecified; Z12.5 Encounter for screening for malignant neoplasm of prostate; Z13.220 Encounter for screening for lipoid disorders
CPT/HCPCS: 36415; 80053; 80061; 82306; 83036; 84153; 84443; 85025; G0103

== ENCOUNTER → 2024-06-28 | Outpatient (CLI) | payer OTHER, SELFPAY ==
[2024-06-28 16:27] LABS: Absolute Lymphocyte Count 1.97 X10^3/uL (0.83-4.51); Absolute Neutrophil Count 3.3 X10^3/uL (2.0-7.7); Basophil# 0.06 X10^3/uL; Eosinophil# 0.08 X10^3/uL; Eosinophils% 1.3 % (0-5); Hematocrit 43.9 % (40-54); Hemoglobin 14.7 g/dL (13.0-16.5); Lymphocyte # 1.97 X10^3/ul (0.83-4.51); Lymphocyte % 32.7 % (19-41); Mean Corp Hgb Conc 33.5 g/dL (32-36); Mean Corpuscular Hgb 30.5 pg (27.0-32.0); Mean Corpuscular Volume 91.1 fL (80-94); Mean Platelet Vol. 10.5 fl (6.2-12.0); Monocyte# 0.57 X10^3/uL; Monocyte% 9.5 % (0-10); NRBC Flagged by Analyzer 0 % (0-5); Neutrophil # 3.34 X10^3/uL (2.7-7.7); Neutrophil % 55.3 % (47-70); Platelet Count 262 K/mm3 (150-450); RBC Distribution Width CV 13.7 % (11.6-14.6); RBC Distribution Width SD 46.5 fl (35.1-43.9); Red Blood Count 4.82 M/mm3 (4.6-6.2)
[2024-06-28 17:08] LABS: ALB/GLOB Ratio 2.4 RATIO (0.9-2.4); AST(SGOT) 40 U/L (<=37); Alanine Aminotransfer ALT/SGPT 36 U/L (<=46); Albumin, Serum 4.6 g/dL (3.4-4.8); Alkaline Phosphatase 66 U/L (40-129); Anion Gap 13 (5-15); BUN 15 mg/dL (4-19); BUN/Creat Ratio 17.5 RATIO (10-20); Calcium,Total 9.1 mg/dL (7.6-11.0); Carbon Dioxide 24.1 mmol/L (21.0-32.0); Chloride 104 mmol/L (98-108); Creatinine, Serum 0.84 mg/dL (0.70-1.20); EST Glomerular Filtration Rate 99 (>60); Glucose 110 mg/dL (70-99); Protein, Total 6.6 g/dL (5.9-8.4); Sodium Level 141 mmol/L (133-145); Total Bilirubin 0.45 mg/dL (0.00-1.30)
[2024-06-28 17:11] LABS: Erythrocyte Sedimentation Rate 5 mm/hr (0-20)
[2024-06-28 17:14] LABS: CRP < 3.00 mg/L (0.0-3.0); Magnesium 2.3 mg/dL (1.5-2.2); Vitamin B12 1023 pg/mL (180-914); Vitamin D,25 Hydroxy 83.1 ng/mL (30-100)
[2024-06-28 17:28] LABS: Iron 86 ug/dL (65-175); Iron Binding Capacity,Total 324 ug/dL (250-450); Iron Binding Capacity,Unsat 238 ug/dL (228-428)
[2024-06-28 18:52] LABS: Hemoglobin A1c 7.3 % (<=5.6)
[2024-06-30 12:08] LABS: Lyme Scn Total Ab w/Rflx Negative (Negative)
[2024-07-02 11:08] LABS: ANTINUCLEAR ANTIBODIES DIRECT Negative (Negative)
== END | disposition home or self-care (01) ==
LOC: LAB 13:54
PROVIDERS: PCP Internal Medicine; Referring Provider Internal Medicine; Visit Provider Internal Medicine
DX: E78.5 Hyperlipidemia, unspecified (principal); R73.9 Hyperglycemia, unspecified; R53.83 Other fatigue; M25.50 Pain in unspecified joint; H81.10 Benign paroxysmal vertigo, unspecified ear; E55.9 Vitamin D deficiency, unspecified
CPT/HCPCS: 36415; 80053; 82306; 82607; 83036; 83540; 83550; 83735; 84443; 85025; 85652; 86038; 86140; 86225; 86618